=== PATIENT | female | born 1955 | race Hispanic/Latino ===

== ENCOUNTER 2017-01-01 10:47 | Emergency (ER) | payer OTHER ==
[2017-01-01 11:40] VITALS: BP 122/79; PULSE 95; RESP 20; TEMP 98; O2SAT 100
--- NOTE | 2017-01-01 12:28 | ED PDOC ---
HPI: General Adult Time Seen by Provider: 01/01/17 11:08 Chief Complaint (Nursing): Trauma History Per: Patient Additional Complaint(s): Pt. states at 1000 today she tripped over a child's chair falling forward striking her head on the cabinet and injuring both legs and the R hip. States she was initially asymptomatic but several minutes after the fall she began to develop pain. Of note, pt. states she walked herself [place] the [facility] [place]. Denies LOC, N/V, numbness, tingling, abdominal pain, chest pain. Past Medical History Reviewed: Historical Data, Nursing Documentation, Vital Signs Vital Signs: Last Vital Signs Temp 98 F 01/01/17 11:27 Pulse 95 H 01/01/17 11:27 Resp 20 01/01/17 11:27 BP 122/79 01/01/17 11:27 Pulse Ox 100 01/01/17 13:15 - Medical History PMH: Gastritis, Hypothyroidism - Surgical History Surgical History: - Family History Family History: States: No Known Family Hx - Home Medications Home Medications: Ambulatory Orders Medication Instructions Recorded Dicyclomine [Bentyl] 20 mg PO BID PRN #30 tab 11/21/14 Oseltamivir Phosphate [Tamiflu] 75 mg PO BID #10 cap 11/21/14 Tramadol HCl [Ultram] 50 mg PO Q6 #15 tab 09/13/15 Cyclobenzaprine [Cyclobenzaprine 10 mg PO Q8 PRN #30 tab 01/01/17 HCl] Naproxen [Naprosyn] 500 mg PO BID PRN #30 tab 01/01/17 - Allergies Allergies/Adverse Reactions: Allergies Allergy/AdvReac Type Severity Reaction Status Date / Time No Known Allergies Allergy Verified 09/13/15 12:43 Review of Systems ROS Statement: Except As Marked, All Systems Reviewed And Found Negative Neurological: Positive for: Headache Physical Exam - Physical Exam Appears: Positive for: Well, Non-toxic, No Acute Distress Head Exam: Positive for: ATRAUMATIC, NORMAL INSPECTION, NORMOCEPHALIC Skin: Positive for: Normal Color, Warm. Negative for: Rash Eye Exam: Positive for: EOMI, Normal appearance, PERRL ENT: Positive for: Normal ENT Inspection, TM Is/Are (no hemotympanum b/l) Neck: Positive for: Normal, Painless ROM Cardiovascular/Chest: Positive for: Chest Non Tender Respiratory: Positive for: CNT, Normal Breath Sounds Gastrointestinal/Abdominal: Positive for: Normal Exam, Soft. Negative for: Tenderness Back: Positive for: Normal Inspection. Negative for: L CVA Tenderness, R CVA Tenderness Extremity: Positive for: Normal ROM, Other (R hip tenderness without deformity; no knee or leg tenderness b/l) Neurologic/Psych: Positive for: Alert, Oriented - ECG O2 Sat by Pulse Oximetry: 100 - Progress ED Course And Treament: CT head and cervical spine w/o contrast, R hip x-ray ordered. Disposition - Clinical Impression Clinical Impression: Head injury, Hip injury - Patient ED Disposition Is Patient to be Admitted: No - Disposition Referrals: [facility] [Outside] Disposition: Routine/Home Disposition Time: 14:20 Condition: STABLE Prescriptions: Cyclobenzaprine [Cyclobenzaprine HCl] 10 mg PO Q8 PRN #30 tab PRN Reason: Muscle Spasm Naproxen [Naprosyn] 500 mg PO BID PRN #30 tab PRN Reason: Pain Instructions: Head Injury (ED), Hip Pain (ED) Forms: [employer] ([place])
--- NOTE | 2017-01-01 13:18 | CT ---
PROCEDURE: CT HEAD WITHOUT CONTRAST. HISTORY: trauma COMPARISON: None available. TECHNIQUE: Axial computed tomography images were obtained through the head/brain without intravenous contrast. Radiation dose: Total exam DLP = 768.97 mGy-cm. This CT exam was performed using one or more of the following dose reduction techniques: Automated exposure control, adjustment of the mA and/or kV according to patient size, and/or use of iterative reconstruction technique. FINDINGS: HEMORRHAGE: No intracranial hemorrhage. BRAIN: Normal gonsalez-white matter differentiation and density are appreciated throughout the cerebrum and cerebellum with the brainstem appearing unremarkable as well. There is no mass effect. There is no suspicious extra-axial fluid collection in the midline brain anatomy appears diffusely unremarkable. VENTRICLES: Unremarkable. No hydrocephalus. CALVARIUM: No destructive bony lesion or displaced fracture identified including through the skullbase. PARANASAL SINUSES: Unremarkable as visualized. No significant inflammatory changes. MASTOID AIR CELLS: Unremarkable as visualized. No inflammatory changes. OTHER FINDINGS: None. IMPRESSION: Unremarkable unenhanced head CT as discussed above.
--- NOTE | 2017-01-01 13:23 | CT ---
PROCEDURE: CT Cervical Spine without contrast HISTORY: <trauma> COMPARISON: None available. TECHNIQUE: Axial computed tomography images were obtained of the cervical spine without the use of intravenous contrast. Coronal and sagittal reformatted images were created and reviewed. Radiation dose: Total exam DLP = 347.52 mGy-cm. This CT exam was performed using one or more of the following dose reduction techniques: Automated exposure control, adjustment of the mA and/or kV according to patient size, and/or use of iterative reconstruction technique. FINDINGS: VERTEBRAE: No fracture. Normal alignment. No destructive bony lesion. DISCS/SPINAL CANAL/NEURAL FORAMINA: No significant central canal or neural foraminal stenosis. Mild mid to inferior cervical spondylosis appreciated with limited disc osteophytes occurring at the C5-6 and C6-7 levels. A mild right C6 neural foraminal stenosis encounter on a degenerative basis due to uncovertebral osteophytes and limited right facet arthropathy. PARASPINAL SOFT TISSUES: Unremarkable. OTHER FINDINGS: Trace biapical pleural fibrosis identified. IMPRESSION: 1. No apparent fracture or spondylolisthesis identified throughout this examination. 2. Limited disc osteophyte complex formation at C5-6 and C6-7 as well as the uncovertebral arthropathy. No significant bony central canal stenosis throughout. Mild right C6 root foraminal stenosis appreciable on degenerative basis. Further characterization of the cervical spine can provided by MRI if clinically warranted.
--- NOTE | 2017-01-01 14:03 | RAD ---
PROCEDURE: Right Hip Radiographs. HISTORY: trauma COMPARISON: None. FINDINGS: BONES: Normal. No fracture. JOINTS: Bilateral degenerative changes both hips. SOFT TISSUES: Normal. OTHER FINDINGS: None. IMPRESSION: No acute findings related to/accounting for the clinical presentation.
== END 2017-01-01 15:35 | disposition home or self-care (01) ==
LOC: H.ER 10:47
DX: S09.90XA Unspecified injury of head, initial encounter (principal); S79.911A Unspecified injury of right hip, initial encounter; W19.XXXA Unspecified fall, initial encounter; Y99.0 Civilian activity done for income or pay; E03.9 Hypothyroidism, unspecified; M48.02 Spinal stenosis, cervical region